=== PATIENT | female | born 1950 | race Caucasian/White ===

== ENCOUNTER 2023-10-05 09:03 | Day surgery (SDC) | payer OTHER ==
[~2023-10-05] VITALS: Ht 147.3 cm; Wt 63.1 kg
[2023-10-05] MEDS ORDERED: fentaNYL CITRATE/PF 100 MCG/2 ML AMP ONE (11:16)
[2023-10-05] MEDS ORDERED: MIDAZOLAM HCL 5 MG/5 ML VIAL ONE (11:16)
[2023-10-05 14:17] VITALS: O2SAT 100
[2023-10-05 17:21] VITALS: BP_SYST 130; PULSE 85; RESP 20
== END 2023-10-05 13:23 | disposition home or self-care (01) ==
LOC: SDS 09:03 → SMU 09:07 → SDS 13:23
PROVIDERS: ATTEND Internal Medicine Gastroenterology
DX: R19.5 Other fecal abnormalities (principal); C18.4 Malignant neoplasm of transverse colon; D12.5 Benign neoplasm of sigmoid colon; D12.3 Benign neoplasm of transverse colon; D64.9 Anemia, unspecified; I12.0 Hypertensive chronic kidney disease with stage 5 chronic kidney disease or end stage renal disease; E11.22 Type 2 diabetes mellitus with diabetic chronic kidney disease; I25.2 Old myocardial infarction; M19.90 Unspecified osteoarthritis, unspecified site; N18.6 End stage renal disease; Z79.899 Other long term (current) drug therapy; Z99.2 Dependence on renal dialysis
CPT/HCPCS: 45380; 45381; 45385; 82948; 88305; 99152; 99153; G0378; J2250; J3010